=== PATIENT | male | born 1985 | race Caucasian/White ===

== ENCOUNTER 2018-08-03 11:49 | Emergency (ER) | payer OTHER ==
[2018-08-03 12:30] LABS: PLATELET COUNT 195 10^3/uL (150-400)
--- NOTE | 2018-08-03 13:21 | EDPHY ---
H & P Time Seen by Provider: 08/03/18 12:17 HPI/ROS: HPI Passed out versus seizure. 32-year-old male by private vehicle with girlfriend. This patient has a long history of anxiety, PTSD and depression. He has been on different benzodiazepine regimens including Xanax and Klonopin. He has had multiple episodes of syncope thought to be attributed to hyperventilation from his anxiety exacerbations in the past. He reports that last night he had an episode of syncope, this was then followed by another episode of syncope this morning at work. This was again accompanied by anxiety and hyperventilation. He states that last night he thinks he hit the left side of his head. He also reports that he thinks he noticed some blood coming from the corner of his left eye. His girlfriend was present in the room and has witnessed these syncopal events in the past. She states that sometimes he has shaking like motions. The patient however reports that on awakening he clears quickly and has no significant residual effects. He complains of a left-sided headache. He describes this as gradual in onset. He 1st noticed this this morning. He describes it as a aching sensation over the left temporal and parietal area. ROS: Constitutional: No fever, no chills. As above. Eyes: No discharge. No changes in vision. ENT: No sore throat. No nasal congestion or rhinorrhea. Respiratory: No cough. No shortness of breath. Cardiac: No chest pain, no palpitations. Gastrointestinal: No abdominal pain, no vomiting, no diarrhea. Genitourinary: No hematuria. No dysuria or increased frequency with urination. Musculoskeletal: No back pain. No neck pain. No myalgias or arthralgias. Skin: No rashes. Neurological: As above. No focal weakness or altered sensation. Past medical history: Anxiety, PTSD, depression, hypertension, sinus surgery. 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 He reports that he requires ENT to drain and clean out his left ear every 6 months or so. Primary care is through [facility]. Social history: Nonsmoker. No alcohol. Here with his girlfriend. Physical Exam: General Appearance: Alert, no distress. This patient is responding to questions appropriately and in full sentences. This patient appears well- hydrated and well-nourished. Head: Normocephalic atraumatic. Eyes: Pupils equal and round no pallor or injection. No lid edema, erythema or injection. No photophobia. No nystagmus. ENT, Mouth: Mucous membranes are moist. The pharyngeal tissues are unremarkable. No edema or swelling. No asymmetry suggestive of abscess. No erythema or exudates. Medial and lateral canthus on gross inspection of both eyes are unremarkable. No evidence of bleeding. No tongue lacerations, abrasions or contusions. Both external auditory canal are unremarkable. He has some cerumen that partially obstructs the view of the left tympanic membrane but what I can see there is no evidence of infection, bleeding or fluid drainage. Respiratory: There are no retractions, lungs are clear to auscultation with good air movement bilaterally. Cardiovascular: Regular rate and rhythm. No murmur. Gastrointestinal: Abdomen is soft and nontender, no masses, bowel sounds normal. No focal tenderness at McBurney's point. No Kong sign. Neurological: Motor sensory function is grossly intact. Cranial nerves are normal. Gait is normal. Skin: Warm and dry, no rashes. Musculoskeletal: Neck is supple and nontender. No midline cervical, thoracic, lumbar tenderness on palpation. Extremities are symmetrical. All joints range without pain or impingement. Psychiatric: No agitation. No depression. Database: EKG: EKG time is 12:06 p.m.; EKG shows a narrow complex normal sinus rhythm with a ventricular rate of 85. The NE, QRS, QT intervals are within normal limits. There are no ST-T wave changes indicative of ischemic or injury pattern. No evidence of right heart strain. No evidence of Brugada syndrome, WPW, hypertrophic cardiomyopathy. Interpreted by me. Imaging: CT head without contrast: There is a small fluid collection noted in the middle ear surrounding the ossicles. Left sinusitis is noted. Otherwise no acute intracranial abnormalities. Skull unremarkable. Results were discussed with staff radiologist Dr. Dakota Espinal. Procedures: Emergency department course: Triage vital signs reviewed. He is moderately hypertensive. Vital signs are otherwise normal. He is afebrile. IV was placed in triage. EKG and basic blood work including CBC and electrolyte panel obtained from triage. Patient's presentation is most consistent with syncopal events related to hyperventilation and his anxiety. Seizure disorder and cardiac etiology of syncope are unlikely. 1:45 p.m., patient re-evaluated, results of his diagnostic workup discussed with him and his girlfriend. CT scan results reviewed. Repeat neurologic assessment is nonfocal. His workup has been reassuring in the emergency department. At this time I feel he is safe for discharge. He feels comfortable going home with his girlfriend who will be driving. I will have him follow up with his [facility] primary care physician. I have recommended he follow up with his [facility] ENT physician to evaluate the fluid collection involving his left ear. I do not feel he requires antibiotics at this time. Also of consideration is neurology consultation through [facility]. He is in agreement with this plan. He understands his follow- up. Return to emergency department precautions reviewed with him and his girlfriend. He was discharged home in good condition with his girlfriend. Differential Diagnosis: The differential diagnosis on this patient includes but is not limited to panic attack, noncardiac syncope. Seizure, traumatic brain injury, other significant traumatic injury unlikely. This represents a partial list of diagnoses considered. These considerations are based on history, physical exam, past history, reassessment and diagnostic testing. Smoking Status: Current every day smoker Constitutional: Initial Vital Signs Temperature (C) 36.8 C 08/03/18 11:54 Heart Rate 70 08/03/18 11:54 Respiratory Rate 18 08/03/18 11:54 Blood Pressure 170/98 H 08/03/18 11:54 O2 Sat (%) 94 08/03/18 11:54 O2 Delivery Mode Room Air Allergies/Adverse Reactions: Sulfa (Sulfonamide Antibiotics) Allergy (Verified 08/03/18 12:01) Medical Decision Making - Data Points Laboratory Results: Laboratory Results 08/03/18 12:12 08/03/18 12:12 Point of Care Test Results: Chemistry 08/03/18 12:20 POC Troponin I 0.00 ng/mL ng/mL (0.00-0.08) Departure - Departure Disposition: Home, Routine, Self-Care Clinical Impression: Syncope, Panic attack Condition: Good Instructions: Syncope (ED), Panic Attack (ED) Additional Instructions: Read and follow provided instructions. Follow-up with with your [facility] primary care physician initially for re-evaluation within the next 2-3 days as discussed. I think it is important you see an ENT physician through [facility] as well within the next week to have your left ear evaluated again. Also of consideration is a Neurology consult through [facility] to further evaluate these fainting episodes you continue to have. Take your medication as prescribed only. Keep yourself well hydrated. Return to the emergency department for worsening symptoms, worsening headache, neck pain, ear pain, fever, palpitations, shortness of breath or other serious concerns. Referrals: [facility] [Outside] - As per Instructions
[2018-08-03 14:24] VITALS: BP 126/72
--- NOTE | 2018-08-03 15:26 | CPEKG ---
Test Reason : OPEN Blood Pressure : / mmHG Vent. Rate : 085 BPM Atrial Rate : 085 BPM P-R Int : 147 ms QRS Dur : 108 ms QT Int : 371 ms P-R-T Axes : 037 003 012 degrees QTc Int : 442 ms Sinus rhythm Confirmed by Cesar Ogden ([id number]) on 08/03/2018 3:25:37 PM Referred By: PHYSICIAN ED Confirmed By:Cesar Ogden
== END 2018-08-03 14:21 | disposition home or self-care (01) ==
DX: R55 Syncope and collapse (principal); F41.0 Panic disorder [episodic paroxysmal anxiety]
CPT/HCPCS: 84484-ER

== ENCOUNTER 2018-09-05 22:13 | Emergency (ER) | payer OTHER ==
--- NOTE | 2018-09-05 22:45 | EDPHY ---
H & P Stated Complaint: syncopal episode, hit head @0900 Time Seen by Provider: 09/05/18 22:25 HPI/ROS: HPI The patient presents with head injury which occurred at 9:00 a.m. This morning. Patient believes he had a syncopal episode which caused his head injury. He says that he suffers from anxiety, frequently hyperventilates to the point of syncope. This morning he was feeling panicked and hyperventilated and then lost consciousness. He was standing and fell backwards, hitting the left side of his head on the wall behind him. When he awoke, he felt dizzy and had a headache. The headache is mostly improved. He felt nauseous throughout the day and did not have anything to eat. Tonight he was cooking dinner and noticed that he was having difficulty using the tongs which he uses frequently. He said he could remember which wait to use them and felt somewhat confused. He had 2 episodes of vomiting after eating his dinner. Of note, he was seen here about 1 month ago with similar presentation with normal EKG and CT scan of his head.. REVIEW OF SYSTEMS 10 systems were reviewed and negative with the exception of the elements mentioned in the history of present illness. PMHx: History of anxiety, PTSD, depression, syncopal episodes related to hyperventilation Soc Hx: Housed, PHYSICAL General Appearance: Alert, no distress Head: There is tenderness to the left temporal and occipital regions of his scalp with no overlying skin change Eyes: Pupils equal and round no pallor or injection ENT, Mouth: Mucous membranes moist, posterior pharynx is unremarkable Respiratory: Breathing comfortably Neurological: A&O x3, cranial nerves 2-12 are intact Skin: Warm and dry, no rashes Musculoskeletal: Neck is supple non tender Extremities: symmetrical, full range of motion Psychiatric: Patient is oriented X 3, there is no agitation Source: Patient Exam Limitations: No limitations - Personal History Current Tetanus/Diphtheria Vaccine: Yes - Medical/Surgical History Hx Asthma: No Hx Chronic Respiratory Disease: No Hx Diabetes: No Hx Cardiac Disease: Yes Hx Renal Disease: No Hx Cirrhosis: No Hx Alcoholism: No Hx HIV/AIDS: No Hx Splenectomy or Spleen Trauma: No Other PMH: severe anxiety/depression, ocd, hypetension, cholestoma tumor removed from L ear, tonsillectomy, sinus surg to remove polyps - Social History Smoking Status: Current every day smoker Constitutional: Initial Vital Signs Temperature (C) 36.6 C 09/05/18 22:14 Heart Rate 102 H 09/05/18 22:14 Respiratory Rate 18 09/05/18 22:14 Blood Pressure 153/111 H 09/05/18 22:14 O2 Sat (%) 94 09/05/18 22:14 O2 Delivery Mode Room Air Allergies/Adverse Reactions: Sulfa (Sulfonamide Antibiotics) Allergy (Verified 09/05/18 22:17) Home Medications: Medication Instructions Recorded Zoloft 100mg (*) 09/05/18 Medical Decision Making - Diagnostics Imaging Results: Imaging Impressions Head CT 09/05/18 22:41 Impression: 1. No significant intracranial abnormality seen. No change since prior study. 2. Stable opacified left maxillary sinus. 3. Previous mastoidectomy on the left with persistent fluid around the ossicles middle ear. If symptoms worsen, additional imaging may be necessary. Findings discussed with Shaina Morales MD at 22:58 hour, 09/05/2018. Differential Diagnosis: This is a 32-year-old male with history of anxiety and depression who presents with a syncopal episode causing him to hit his head which occurred this morning in the setting of hyperventilation who now presents with mild confusion, 2 episodes of vomiting and mild headache. He has a normal neurologic examination currently. I am concerned because of 2 episodes of vomiting post head injury which could suggest intracranial hemorrhage. By nexus 2 criteria, I will perform CT scan of his head to evaluate this further. If this is negative, I suspect concussion as the cause of his symptoms. Departure - Departure Disposition: Home, Routine, Self-Care Clinical Impression: Syncope Qualifiers: Syncope type: unspecified Qualified Code(s): R55 - Syncope and collapse Head injury Qualifiers: Encounter type: initial encounter Qualified Code(s): S09.90XA - Unspecified injury of head, initial encounter Vomiting Qualifiers: Vomiting type: unspecified Vomiting Intractability: non-intractable Nausea presence: with nausea Qualified Code(s): R11.2 - Nausea with vomiting, unspecified Condition: Good Instructions: Head Injury (ED) Additional Instructions: Your CT scan is unremarkable. You should return to the emergency department if your worse in any way. Referrals: [facility] [Other] - As per Instructions
[2018-09-05 23:12] VITALS: BP 130/87
== END 2018-09-05 23:12 | disposition home or self-care (01) ==
DX: R55 Syncope and collapse (principal); S09.90XA Unspecified injury of head, initial encounter; W19.XXXA Unspecified fall, initial encounter